=== PATIENT | female | born 1960 | race Hispanic/Latino ===

== ENCOUNTER 2017-07-08 08:05 | Day surgery (SDC) | payer OTHER ==
[~2017-07-08] VITALS: Ht 154.9 cm; Wt 66.2 kg
[~2017-07-08 08:05] MED LIST: AMLODIPINE BESYL5 MG PO; HYDROCHLOROTHIA25 MG PO; KLOR-CON 1010 MEQ PO; LOVASTATIN20 MG PO
--- NOTE | 2017-07-08 11:29 | NUR ---
07/08/17 Jovany9 Inge Ascencio 1124-PATIENT ARRIVED TO PACU ON 6L MASK O2 SAT 99% NONRESPONSIVE ORAL AIRWAY IN PLACE. 3 ABDOMINAL INCISIONS GAUZE TAPE ICE APPLIED.
--- NOTE | 2017-07-08 12:18 | NUR ---
LE 1210 PT RETURNED FROM PACU VERY SLEEPY C/O URGE TO VOID. PLACED ON BEDPAN. FAMILY AT BEDSIDE.
--- NOTE | 2017-07-08 14:11 | NUR ---
LE 1315 PT VOIDED 400+ML URINE IN BEDPAN AND BED. LINEN CHANGED AND PT CLEANED UP. FAMILY AT BEDSIDE. 1412 RESTING. REU.
[2017-07-08] MEDS ORDERED: HYDROCODON-ACE1 EA10 PO (14:18)
--- NOTE | 2017-07-08 14:53 | NUR ---
FAMILY COMES TO NURSE'S STATION AND ASKS IF PATIENT CAN EAT. JELLO AND PUDDING GIVEN. PT REPORTS IN PERSIAN THAT SHE IS DIZZY AND NEEDS TO VOID. PT REQUESTS BED AQUINO. PT VOIDS ON BED AQUINO AND DOES WELL POSITIONING HERSELF IN BED. PT REQUESTS HER FAMILY TO ASSIST HER EATING THE PUDDING.
--- NOTE | 2017-07-08 15:56 | NUR ---
UP TO BATHROOM WITH ONE PERSON ASSIST. VOIDED. WALKING IN HALLWAY WITH RN. BACK IN ROOM GETTING DREESED. C/O FEELING DIZZY. LAYING DOWN IN BED. FAMILY AT BEDSIDE.
--- NOTE | 2017-08-12 09:20 | OR ---
[facility] [address], [place] [address] Signed DATE OF OPERATION: 07/08/17 SURGEON: Erika Velázquez MD PREOPERATIVE DIAGNOSES: 1. Chronic cholecystitis/cholelithiasis. 2. Incarcerated paraumbilical recurrent incisional hernia. POSTOPERATIVE DIAGNOSES: 1. Chronic cholecystitis/cholelithiasis. 2. Incarcerated paraumbilical recurrent incisional hernia. PROCEDURES: 1. Laparoscopic cholecystectomy with intraoperative cholangiogram. 2. Primary incisional paraumbilical herniorrhaphy. ESTIMATED BLOOD LOSS: None. FINDINGS: Intraoperative cholangiogram showed a slightly dilated common bile duct. There may have been some sludge in her distal common bile duct. With the addition of glucagon or contrast did go through a nicely tapered ampulla of Vater and into the duodenum. She did have a large 2 cm stone in her gallbladder. She had chronic thickening and inflammatory changes of the gallbladder wall. In addition, she had a recurrent paraumbilical incisional hernia following her previous hysterectomies. As is common, there were multiple Algerian cheese-type defects. In the end, the total defect was about 3 to 4 cm in diameter. We did close that transversely with interrupted [id number] and simple #1 Prolene sutures. We did not use mesh in the setting of gallbladder surgery. We did find that the abdominal wall cephalad to the umbilicus is much thinner than below, and therefore she is at high risk for recurrent hernia. INDICATION: Janiya is a 56-year-old female, who had her son come with her to help interpret in the office. She has had a lot of trouble with right upper quadrant abdominal pain and painful incarcerated paraumbilical incisional hernia. An ultrasound from 2014 showed at least one large gallstone in the gallbladder. At that time, the gallbladder wall was about 4 mm in thickness. The common bile duct was unremarkable. In the meantime, she was describing classic recurrent right upper quadrant abdominal pain consistent with her biliary colic. We did send her for a HIDA scan, and her gallbladder never was able to fill. In addition, she told me that the paraumbilical hernia causes her pain about 5 to 7/10. It is worse when she does house work and so forth. In the office, I gave her pamphlets for gallbladder as well as hernias. We looked at those in detail. She understands the location of function of the gallbladder. She understands laparoscopic versus open cholecystectomy. She understands expected intraop and postop course. I explained to Janiya, we would use the paraumbilical incision and repair her recurrent Electronically Signed By: ERIKA VELÁZQUEZ MD 07/22/17 1010 Electronically Signed By: ERIKA VELÁZQUEZ MD 08/19/17 1842 PATIENT NAME: JANIYA ARNDT OPERATIVE REPORT DATE OF : 58 PHYSICIAN: ERIKA VELÁZQUEZ MD REPORT #: [id number] REPORT IS CONFIDENTIAL AND NOT TO BE RELEASED WITHOUT AUTHORIZATION [address] [address] Signed incisional hernia primarily at the same time. We would use that recurrent incisional hernia for Chioma trocar placement. She also understands the difference between the primary suture repair and mesh repair for the hernia. She is well aware that there is risk to hernia surgery including, but not limited to bleeding, infection, scarring, change in contour of the skin, damage to bowel, recurrent hernias and chronic pain. She knows she is at high risk for recurrent hernia given the fact we are not using mesh in the setting of a gallbladder surgery. She also understands there is risk to gallbladder surgery including, not limited to bleeding, infection, scarring, change in contour to the skin, damage to bowel, damage to main bile duct, incisional hernias, and other unforeseen comorbidities. She had expressed understanding and wished to proceed. PROCEDURE NOTE: Janiya was taken into our operating room and placed in the supine position under general endotracheal tube anesthesia. She was given preoperative antibiotics along with subcutaneous heparin. SCDs were utilized. She was then prepped and draped in the usual sterile fashion even with pharmacologic paralysis, we could not reduce the paraumbilical incisional hernia. We used the vertical curvilinear incision and extended her previous hysterectomy incision to the right of her umbilicus and slightly above the umbilicus. We went down through the tissues bluntly and with the cautery. Sure enough, we found several fascial defects, all incarcerated with omentum. In due time, the total fascial defect was 3, maybe 4 cm in diameter, and all the omentum had been reduced. We had removed all the omentum circumferentially from the underlying abdominal wall. I then closed the fascial defect transversely from the right and left sides to work my way towards the middle. We used a #1 Prolene in [id number] fashion along with simple sutures. I left 1 cm of the center portion of that fascial defect open and I was able to place a Chioma trocar through this for the gallbladder surgery. After this, we placed our two right subcostal and subxiphoid trocars under direct visualization without difficulty. The gallbladder was then grasped and elevated in the right upper quadrant. We had taken pictures throughout for photodocumentation. It was very clear that she had chronic inflammatory changes to that gallbladder. It took a few minutes to dissect out the triangle of Calot and we inserted the intraoperative cholangiocatheter into the cystic duct. At first, the contrast would not flow through the ampulla of Vater. We thought there might be some sludge in the way, but it did taper nicely. With the addition of glucagon, then our contrast went through quite readily. The cystic duct stump was then closed with a PDS Endoloop and 2 clips were placed on the cystic duct stump to triston its location. After this, the gallbladder was removed from the gallbladder fossa with the help of the cautery and placed into an EndoCatch bag. The right upper quadrant was then irrigated and suctioned out until clear. We used our laparoscopic suturing device to pass 0 Vicryl suture on either side of the fascia of the subxiphoid trocar site. This was tied down to close this fascia primarily. After this, all the gas was allowed to escape and all the trocars were removed along with the gallbladder. The gallbladder was opened on the back table and a picture was taken by a circulating nurse. Electronically Signed By: ERIKA VELÁZQUEZ MD 07/22/17 1010 Electronically Signed By: ERIKA VELÁZQUEZ MD 08/19/17 1842 PATIENT NAME: JANIYA ARNDT OPERATIVE REPORT DATE OF : 58 PHYSICIAN: ERIKA VELÁZQUEZ MD REPORT #: [id number] REPORT IS CONFIDENTIAL AND NOT TO BE RELEASED WITHOUT AUTHORIZATION [address] [address] Signed We then closed the midportion of the umbilical fascial defect with some additional #1 Prolene suture. Local anesthetic was then copiously injected into the abdominal wall and underneath the subcutaneous tissues in the paraumbilical area. All the wounds were then irrigated and suctioned out until clear. The umbilical skin was held out of the midline fascia with an interrupted 2-0 PDS suture. The dermis was then reapproximated on each incision with interrupted 3-0 subcuticular Monocryl sutures. I closed the skin edges for the paraumbilical incision with the help of a running 6-0 fast absorbing plain gut suture. Dry gauze and tape were then applied to all incisions. Janiya was then awakened from her anesthesia, extubated in the OR, taken to recovery room in stable condition. Erika Velázquez MD ALB/MODL /[id number] cc: SALUD Bello Electronically Signed By: ERIKA VELÁZQUEZ MD 07/22/17 1010 Electronically Signed By: ERIKA VELÁZQUEZ MD 08/19/17 1842 PATIENT NAME: JANIYA ARNDT OPERATIVE REPORT DATE OF : 58 PHYSICIAN: ERIKA VELÁZQUEZ MD REPORT #: [id number] REPORT IS CONFIDENTIAL AND NOT TO BE RELEASED WITHOUT AUTHORIZATION
== END 2017-07-08 16:30 | disposition home or self-care (01) ==
LOC: DS 08:05
PROVIDERS: Colon & Rectal Surgery
PROC: 0WQF0ZZ Repair Abdominal Wall, Open Approach (ICD-10-PCS; 2017-07-08)
PROC: 0FT44ZZ Resection of Gallbladder, Percutaneous Endoscopic Approach (ICD-10-PCS; principal; 2017-07-08 09:15)
PROC: BF12YZZ Fluoroscopy of Gallbladder using Other Contrast (ICD-10-PCS; 2017-07-08 09:15)
DX: K80.10 Calculus of gallbladder with chronic cholecystitis without obstruction (principal); K43.0 Incisional hernia with obstruction, without gangrene; I10 Essential (primary) hypertension; Z98.890 Other specified postprocedural states
CPT/HCPCS: 00790; 74300; J0330; J0690; J1100; J1170; J1610; J1644; J1885; J2250; J2405; J2704; J3010; J7120; Q9967